=== PATIENT | female | born 1965 | race Caucasian/White ===

== ENCOUNTER 2024-01-08 07:59 | Day surgery (SDC) | payer OTHER ==
--- NOTE | 2024-01-06 14:13 | HP ---
DATE OF SURGERY: 01/08/2024 HISTORY OF PRESENT ILLNESS: The patient is a 58-year-old female presents with complaints of epigastric pain radiating up with burning and heartburn. She has been on some pantoprazole that helped some in the beginning but now it is not helping much. She was seen by cardiology and her echocardiogram with no changes. She reports some irritable bowel syndrome (IBS) with diarrhea and was put on some dicyclomine. Last colonoscopy was two years ago and did not have any polyps. Her mother of colon cancer. PAST MEDICAL HISTORY: Hyperlipidemia. Hypertension. IBS. Gastroesophageal reflux disease. PAST SURGICAL HISTORY: Carpal tunnel. Colonoscopy. ALLERGIES: SULFA. MEDICATIONS: Nitro, pantoprazole, dicyclomine, amlodipine, metoprolol, atorvastatin. FAMILY HISTORY: Colon cancer. Breast cancer. SOCIAL HISTORY: Negative. REVIEW OF SYSTEMS: CONSTITUTIONAL: Denies fever or chills. CHEST: Denies shortness of breath. CVS: Denies chest pain. ABDOMEN: Reports epigastric pain. PHYSICAL EXAMINATION: GENERAL: No acute distress. CHEST: Nonlabored. No shortness of breath. CVS: Regular rate and rhythm. ABDOMEN: Soft. IMPRESSION: Severe epigastric pain, belching. PLAN: EGD with Dr. Derek Yepez. As dictated by Elly Bhat NP.
[2024-01-08] MEDS: Lactated Ringers 1,000 ML IV SCH (08:20)
[2024-01-08 08:56] VITALS: RESP 18
[2024-01-08] MEDS ORDERED: DIPRIVAN 200 MG/20 ML IV ONE (10:07)
--- NOTE | 2024-01-08 10:31 | OP ---
SURGERY DATE/TIME: 01/08/2024 1006 PREOPERATIVE DIAGNOSIS: Epigastric pain. POSTOPERATIVE DIAGNOSIS: Grade 2 gastroesophageal reflux disease. No hiatal hernia. PROCEDURE: EGD. SURGEON: Derek Yepez M.D. ANESTHESIA: MAC. COMPLICATIONS: None. CONDITION: Stable. INDICATION: The patient presents for epigastric pain. DESCRIPTION OF PROCEDURE: Taken to endoscopy. MAC sedation provided. Scope introduced. Pharyngoesophageal junction normal. Esophagus normal. Normal contraction. Normal epithelium. Gastroesophageal junction grade 2 gastroesophageal reflux disease. There was a 1 cm rim of grade 2 gastroesophageal reflux disease. No ulcerations. No stricture. No hiatal hernia. Fundus, body and antrum normal. Pylorus normal. Duodenal bulb normal. Second portion normal. There was kaiser bile dripping out of the ampulla into the duodenum. Scope withdrawn looped upon itself. No hiatal hernia. The patient tolerated the procedure satisfactorily. The patient was placed on Protonix for six weeks.
[2024-01-08 11:08] VITALS: BP 123/72; PULSE 64; TEMP 97.9; O2SAT 100
== END 2024-01-08 11:20 | disposition home or self-care (01) ==
LOC: SDC 07:59
PROVIDERS: ATTEND Surgery
DX: K21.9 Gastro-esophageal reflux disease without esophagitis (principal); R10.13 Epigastric pain; Z80.0 Family history of malignant neoplasm of digestive organs; Z80.3 Family history of malignant neoplasm of breast
CPT/HCPCS: J2704

== ENCOUNTER 2024-03-30 17:46 | Emergency (ER) | payer OTHER ==
[2024-03-30 17:57] VITALS: TEMP 98.3
--- NOTE | 2024-03-30 18:00 | ERPHSYRPT ---
- History of Present Illness Time Seen by Provider: 03/30/24 18:00 Source: patient Exam Limitations: no limitations Patient Subjective Stated Complaint: pt had her feet knocked out from under her from a dog and injured her left collar bone on Friday Triage Nursing Assessment: Pt brought self to the ER, vitals wnl, rates pain as 7/10, pain to the left collar bone, unable to use the left arm due to the pain, bruising at the top of the left breast, left ankle swollen but walking okay, denies hitting head, denies LOC, pulses normal, skin n/w/d, denies difficulty breathing, doesn't appear to be in any distress Physician History: The patient presents with right shoulder pain after a fall. She was accidentally knocked over by her grandchild, landing on her right elbow and ankle. The most severe pain is localized to the right shoulder, where she developed a 'goose egg' immediately after the fall. The pain is sharp and worsens with certain movements, such as lifting the arm, opening a car door, and using a turn signal. She also reports aching pain in the right arm. The patient has been managing the pain with Tylenol and ibuprofen, which only provide partial relief. She has been limiting use of the arm due to uncertainty about the injury. The patient also mentions having scoliosis. Occurred: days ago (2) Method of Injury: fell Quality: constant, sharpness, throbbing Severity of Pain-Max: severe Severity of Pain-Current: severe Extremities Pain Location: shoulder: left Modifying Factors: Improves With: immobilization. Worsens With: movement Associated Symptoms: No chest discomfort, No chest pain, No dyspnea, No short of breath Allergies/Adverse Reactions: Sulfa (Sulfonamide Antibiotics) Allergy (Verified 03/30/24 17:57) Hives Home Medications: Amlodipine Besylate 2.5 mg PO DAILY 12/25/23 [History] Atorvastatin Calcium 20 mg PO DAILY 12/25/23 [History] Dicyclomine HCl 20 mg [Bentyl 20 mg] 20 mg PO DAILY 12/25/23 [History] Metoprolol Succinate 50 mg [Toprol Xl 50 MG] 25 mg PO DAILY 12/25/23 [History] Nitroglycerin 0.4 mg Tablet [Nitrostat 0.4 MG Tablet] 0.4 mg SL Q5MIN PRN MR X 3 PRN 12/25/23 [History] Omeprazole Magnesium [Prilosec Otc] 20 mg PO DAILY 03/30/24 [History] Travel Risk - International Travel Have you traveled outside of the country in past 3 weeks: No - Emerging Infectious Disease Are you exhibiting symptoms associated with any current EIDs: No - Review of Systems All Other Systems: Reviewed and Negative - Past Medical History Pertinent Past Medical History: Yes Neurological History: No Pertinent History ENT History: No Pertinent History Cardiac History: Arrhythmia Respiratory History: No Pertinent History Endocrine Medical History: No Pertinent History Musculoskeletal History: No Pertinent History GI Medical History: GERD, Irritable Bowel History: No Pertinent History Psycho-Social History: No Pertinent History Female Reproductive Disorders: No Pertinent History Other Medical History: reports 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 - Past Surgical History Past Surgical History: Yes Neuro Surgical History: No Pertinent History Cardiac: No Pertinent History Respiratory: No Pertinent History Genitourinary: No Pertinent History Musculoskeletal: Other Female Surgical History: No Pertinent History Other Surgical History: carpal tunnel release, colonoscopy - Social History Smoking Status: Never smoker Exposure to second hand smoke: Yes Drug Use: none - Social Determinants of Health Will the patient participate in the screening: Yes Do you worry about a steady place to live?: No Do you have any problems with any of the following?: No known problems In the past 12 months,have you had to go without utilities?: No Transportation Issues: No Has anyone in your support network made you feel unsafe?: No Have you or anyone in your house had to go without enough: No - Nursing Vital Signs Nursing Vital Signs: Initial Vital Signs Temperature 98.3 F 03/30/24 17:49 Pulse Rate 94 H 03/30/24 17:49 Blood Pressure 118/73 03/30/24 17:49 O2 Sat by Pulse Oximetry 97 03/30/24 17:49 Pain Scale Pain Intensity 5 - Physical Exam SpO2: 97 Comments: Left shoulder No obvious deformities. ROM limited by pain + SC joint TTP - Speeds - Yergasons + pain w/ resisted external rotation. + pain with abduction past 90 degrees. + Empty-can test. + Jean. + Neers. + Scarf test. - Apprehension - OBriens Abduction 5/5 ER 5/5 IR 5/5 Biceps 5/5 Triceps 5/5 Intrinsics 5/5 Sensation: Subjective normal median / ulnar / radial / axillary sensation Vasculature: 2+ radial pulse UE Skin: no redness, no warmth, no ecchymosis, no rash - Course Nursing assessment & vital signs reviewed: Yes - Radiology Exams Left Clavicle X-ray Interpretation: Interpreted by me, No Fracture - Progress Progress: unchanged Counseled pt/family regarding: need for follow-up, rad results Medical Desision Making - Diagnostic Testing Diagnostic test were ordered, analyzed, and reviewed by me: Yes Radiological Interpretation: Interpreted by me - Risk of complications Low Risk: Low risk of morbidity from additional dx testing or treatment - Departure Departure Disposition: Home Clinical Impression: Sternoclavicular (joint) (ligament) sprain Condition: Good Critical Care Time: No Referrals: YOAV ABDUL DO [Primary Care Provider] - Follow up/PCP as directed Instructions: Shoulder Sprain ED
[2024-03-30 18:51] VITALS: BP 127/68; PULSE 70; RESP 18
--- NOTE | 2024-03-31 09:03 | XRAY ---
Indication: Pain following fall. Comparison: None 2 view left clavicle demonstrates osteopenia, mild AC degenerative changes, moderate dextrorotoscoliosis centered at T8-T9, and minimal left lung base subsegmental atelectasis/scarring. No other bony, articular, or soft tissue abnormalities.
[2024-03-31 23:01] VITALS: O2SAT 97
== END 2024-03-30 18:50 | disposition home or self-care (01) ==
LOC: ED 17:46
DX: S43.62XA Sprain of left sternoclavicular joint, initial encounter (principal); W01.0XXA Fall on same level from slipping, tripping and stumbling without subsequent striking against object, initial encounter; Z79.899 Other long term (current) drug therapy
CPT/HCPCS: 73000; 99282